=== PATIENT | male | born 1960 | race Caucasian/White ===

== ENCOUNTER 2018-07-30 08:19 | Day surgery (SDC) | payer BC, OTHER ==
[~2018-07-30] VITALS: Ht 190.5 cm; Wt 122.5 kg
[~2018-07-30 08:19] MED LIST: OMEPRAZOLE20 MG PO
--- NOTE | 2018-07-30 11:50 | NUR ---
07/30/18 1150 Elza Clay 1125 PT ARRIVED IN PACU SLEEPY LAYING ON L SIDE. ABD SOFT. 1135 OXYGEN DECREASED TO 2L VIA NC WITH SATS 93%. PT RESTING. NO C/O'S. 1145 OXYGEN REMOVED. SATS 93% ON RA. SITTING UP IN BED SIPPING ON APPLE JUICE.
--- NOTE | 2018-08-14 13:39 | OR ---
[facility] [address], [place] [address] Signed DATE OF OPERATION: 07/30/2018 SURGEON: Estella Michelle MD PREOPERATIVE DIAGNOSES: 1. Gastroesophageal reflux disease. 2. Hiatal hernia (38-42 cm). 3. Personal history of gastritis. 4. Personal history of distal esophagitis. 5. He has a father with a history of colon cancer in his 60s. POSTOPERATIVE DIAGNOSES: 1. Moderate sized hiatal hernia (40-45 cm). 2. 4 mm polyps at 32 cm, 10 cm, and 6 cm. PROCEDURES PERFORMED: 1. Esophagogastroduodenoscopy without biopsy. 2. Colonoscopy with hot biopsies. ESTIMATED BLOOD LOSS: None. INDICATIONS: Elvis is a 57-year-old gentleman who had come to us in 2013 for upper and lower endoscopy. We know his father developed colon cancer in the 60s. In addition, Elvis was having trouble with acid reflux. He told me without his Prilosec he is quite miserable. In fact, he went out and bought a bed inclined, so he can sleep at night since I have seen him last. We measured his hiatal hernia back then from 38 to 42 cm. He also had some very mild gastritis and distal esophagitis at that time. He said this has become quite an issue for him and is miserable. He was thinking about having surgery to repair that hiatal hernia. In the office, I gave him pamphlets on upper and lower endoscopy and we reviewed that together. He understands the nature of the 2 tests along with the risks including, but not limited to gas bloating, crampy abdominal pain, bleeding, perforation, requiring surgery, and missed diagnosis. He also understands the need for IV conscious sedation. He had expressed understanding and wished to proceed. PROCEDURE NOTE: Elvis was taken into our endoscopy suite and placed in the supine semi-recumbent position. He was given a total of 9 mg of Versed and 200 mcg of fentanyl to cover both the upper and lower endoscopies. A bite block was utilized for the case. The adult Electronically Signed By: ESTELLA MICHELLE MD 07/31/18 0948 PATIENT NAME: ELVIS HAYES OPERATIVE REPORT DATE OF : 64 REPORT #: [id number] PHYSICIAN: ESTELLA MICHELLE MD PCP: PATTIE MCGARRY REPORT IS CONFIDENTIAL AND NOT TO BE RELEASED WITHOUT AUTHORIZATION [facility] [address] [place], [place] [address] Signed gastroscope was introduced and advanced under direct visualization of camera out into the duodenum itself. The duodenum and pyloric channel were fine, and his entire stomach was unremarkable. We did not repeat biopsies nor the CLOtest on this occasion since we just did that a few years ago. Upon retroflexion of scope, we could once again easily see his moderate-sized hiatal hernia. We withdrew the scope up through the area of the GE junction, which was compliant without stricture. No ulcerations. No Lucy-Rodriguez tears. We measured the hiatal hernia on this occasion from about 40 cm back to 45 cm from inserted from 45 cm back to 40 cm. He has very minimal disruption to the Z-line. There was no Sorenson's mucosa. There was no distal esophagitis on this occasion. His middle and upper esophagus were fine. After this, the gas was suctioned out and the gastroscope removed. Elvis tolerated his upper endoscopy quite well. Elvis was rotated into the left lateral decubitus position. He was maintained on IV sedation with Versed and fentanyl. A digital rectal exam was performed and he is getting some induration to the prostate given his age. The adult colonoscope was introduced and advanced all around into the cecum under direct visualization of camera without difficulty. His prep was good. The scope was slowly withdrawn. We removed the above polyps with the help of hot biopsy forceps. After this, the scope had been retroflexed in the rectum and had this one small polyp above the anal canal, which we removed easily with hot biopsy forceps. After this, the gas was suctioned out and colonoscope removed. Elvis tolerated the procedure quite well. RECOMMENDATIONS: I will see Elvis back in my office in 7 to 14 days to review his results. We will once again look for his barium swallow. We will also review the surgery for him, and his pathology report for his colonic polyps. Estella Michelle MD ALB/MODL /[id number] cc: MD Pattie David PA Electronically Signed By: ESTELLA MICHELLE MD 07/31/18 0948 PATIENT NAME: ELVIS HAYES OPERATIVE REPORT DATE OF : 64 REPORT #: [id number] PHYSICIAN: ESTELLA MICHELLE MD PCP: PATTIE MCGARRY REPORT IS CONFIDENTIAL AND NOT TO BE RELEASED WITHOUT AUTHORIZATION [facility] [address] [place], [place] [address] Signed Copies: ESTELLA MICHELLE MD, KRISTIN H PA ~ Electronically Signed By: ESTELLA MICHELLE MD 07/31/18 0948 PATIENT NAME: ELVIS HAYES OPERATIVE REPORT DATE OF : 64 REPORT #: [id number] PHYSICIAN: ESTELLA MICHELLE MD PCP: PATTIE MCGARRY REPORT IS CONFIDENTIAL AND NOT TO BE RELEASED WITHOUT AUTHORIZATION
== END 2018-07-30 12:20 | disposition home or self-care (01) ==
LOC: OPS 08:19 → DS 08:19 → OPS 09:45 → DS 09:45 → OPS 12:20
PROVIDERS: Colon & Rectal Surgery
PROC: 0DJ08ZZ Inspection of Upper Intestinal Tract, Via Natural or Artificial Opening Endoscopic (ICD-10-PCS; principal; 2018-07-30 09:45)
PROC: 0DBE8ZX Excision of Large Intestine, Via Natural or Artificial Opening Endoscopic, Diagnostic (ICD-10-PCS; 2018-07-30 09:45)
DX: Z12.11 Encounter for screening for malignant neoplasm of colon (principal); K63.5 Polyp of colon; K21.9 Gastro-esophageal reflux disease without esophagitis; K44.9 Diaphragmatic hernia without obstruction or gangrene; E55.9 Vitamin D deficiency, unspecified; Z80.0 Family history of malignant neoplasm of digestive organs; Z98.890 Other specified postprocedural states; Z87.891 Personal history of nicotine dependence; Z88.6 Allergy status to analgesic agent
CPT/HCPCS: 99153; G0500; J2250; J3010; J7120

== ENCOUNTER 2019-07-09 18:32 | Emergency (ER) | payer BC, OTHER ==
[~2019-07-09] VITALS: Ht 190.5 cm; Wt 122.5 kg
--- OUTSIDE RECORDS SUMMARY | ~2019-07-09 | XMS | Encounter Summary ---
Demographics + + + | Address | [address] | | | [place] [address] | + + + | Home Phone | | + + + | Preferred Language | Unknown | + + + | Marital Status | Single | + + + | Taoist Affiliation | Unknown | + + + | Race | Unknown | + + + | Ethnic Group | Unknown | + + + Author + + + | Author | [facility] | | | and [place] | + + + | Organization | [facility] | | | and [place] | + + + | Address | Unknown | + + + | Phone | Unavailable | + + + Care Team Providers + +------+ + | Care Freight Dispatcher Name | Role | Phone | + +------+ + PCP | Unavailable | + +------+ + Encounter Details +--------+ + + + + | Date | Type | Department | Care Team | Description | +--------+ + + + + | 08/08/ | Hospital | [facility] | Corbin Sweet | BENIGN MAX SOFT | | 2004 - | Encounter | [address] | [address] | [address] | | | | [address] | [place] [address] | | | 08/16/ | | [place], [place] | [phone] | | | 2004 | | [address] | | | | | | [phone] | | | +--------+ + + + + Social History + +-------+ +--------+------+ | Tobacco Use | Types | Packs/Day | Years | Date | | | | | Used | | + +-------+ +--------+------+ | Never Assessed | | | | | + +-------+ +--------+------+ + + + | Sex Assigned at | Date Recorded | | | | + + + | Not on file | | + + + + + + + | Job Start Date | Occupation | Industry | + + + + | Not on file | Not on file | Not on file | + + + + + + + + | Travel History | Travel Start | Travel End | + + + + + + | No recent travel history available. 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
--- OUTSIDE RECORDS SUMMARY | ~2019-07-09 | XMS | Clinical Summary ---
Demographics + + + | Address | [address] | | | [place] [address] | + + + | Home Phone | | + + + | Preferred Language | Unknown | + + + | Marital Status | Single | + + + | Sikh Affiliation | Unknown | + + + | Race | Unknown | + + + | Ethnic Group | Unknown | + + + Author + + + | Author | [facility] (Historical as of | | | 03-08-19) | + + + | Organization | [facility] (Historical as of | | | 03-08-19) | + + + | Address | Unknown | + + + | Phone | Unavailable | + + + Care Team Providers + +------+ + | Care Vp Talent Management Name | Role | Phone | + +------+ + | Dr. Ad | PP | Unavailable | + +------+ + Allergies Not on File Current Medications Not on file Active Problems Not on file Social History + +-------+ +--------+------+ | Tobacco [...] on file | | + + + Plan of Treatment Not on file Results Not on filefrom Last 3 Months"
--- OUTSIDE RECORDS SUMMARY | ~2019-07-09 | XMS | Encounter Summary ---
Demographics + + + | Address | [address] | | | [place] [address] | + + + | Home Phone | | + + + | Preferred Language | Unknown | + + + | Marital Status | Single | + + + | Confucianism Affiliation | Unknown | + + + | Race | Unknown | + + + | Ethnic Group | Unknown | + + + Author + + + | Author | [facility] | | | and [place] | + + + | Organization | [facility] | | | and [place] | + + + | Address | Unknown | + + + | Phone | Unavailable | + + + Care Team Providers + +------+ + | Care Audiologist Name | Role | Phone | + +------+ + PCP | Unavailable | + +------+ + Encounter Details +--------+ + + + + | Date | Type | Department | Care Team | Description | +--------+ + + + + | 08/08/ | Hospital | [facility] | Corbin Sweet | BENIGN MAX SOFT | | 2004 - | Encounter | [address] | [address] | [address] | | | | [address] | [place] [address] | | | 08/16/ | | [place], [place] | [phone] | | | 2004 | | [address] | | | | | | [phone] | | | +--------+ + + + [...]
--- OUTSIDE RECORDS SUMMARY | ~2019-07-09 | XMS | Clinical Summary ---
Demographics + + + | Address | [address] | | | [place] [address] | + + + | Home Phone | | + + + | Preferred Language | Unknown | + + + | Marital Status | Single | + + + | Taoist Affiliation | Unknown | + + + | Race | Unknown | + + + | Ethnic Group | Unknown | + + + Author + + + | Author | [facility] | | | and [place] | + + + | Organization | [facility] | | | and [place] | + + + | Address | Unknown | + + + | Phone | Unavailable | + + + Care Team Providers + +------+ + | Care Optometry Doctor Name | Role | Phone | + +------+ + PCP | Unavailable | + +------+ + Allergies Not on File Medications Not on file Active Problems Not [...] recent travel history available. | + + Last Filed Vital Signs Not on file Plan of Treatment + + + + + | Health Maintenance | Due Date | Last Done | Comments | + + + + + | Vaccine: | | | | | Dtap/Tdap/Td (1 - | 2 | | | | Tdap) | | | | + + + + + | Vaccine: Zoster (1 | | | | | of 2) | 3 | | | + + + + + | Vaccine: Influenza | | | | | (#1) | 9 | | | + + + + + Results Not on filefrom Last 3 Months"
--- OUTSIDE RECORDS SUMMARY | ~2019-07-09 | XMS | Clinical Summary ---
Demographics + + + | Address | [address] | | | [place] [address] | + + + | Home Phone | | + + + | Preferred Language | Unknown | + + + | Marital Status | Single | + + + | Hoahaoism Affiliation | Unknown | + + + | Race | Unknown | + + + | Ethnic Group | Unknown | + + + Author + + + | Author | [facility] (Historical as of | | | 03-08-19) | + + + | Organization | [facility] (Historical as of | | | 03-08-19) | + + + | Address | Unknown | + + + | Phone | Unavailable | + + + Care Team Providers + +------+ + | Care Panel Raiser Operator Name | Role | Phone | + [...]
--- OUTSIDE RECORDS SUMMARY | ~2019-07-09 | XMS | Clinical Summary ---
Demographics + + + | Address | [address] | | | [place] [address] | + + + | Home Phone | | + + + | Preferred Language | Unknown | + + + | Marital Status | Single | + + + | Uatsdin Affiliation | Unknown | + + + | Race | Unknown | + + + | Ethnic Group | Unknown | + + + Author + + + | Author | [facility] | | | and [place] | + + + | Organization | [facility] | | | and [place] | + + + | Address | Unknown | + + + | Phone | Unavailable | + + + Care Team Providers + +------+ + | Care Aircraft Steel Fabricator Name | Role | Phone | + [...]
== END 2019-07-09 19:37 | disposition left against medical advice (07) ==
LOC: ED 18:32
DX: Z53.21 Procedure and treatment not carried out due to patient leaving prior to being seen by health care provider (principal)

== ENCOUNTER 2021-08-24 08:21 | Emergency (ER) | payer BC, OTHER ==
[~2021-08-24] VITALS: Ht 190.5 cm; Wt 124.2 kg
--- OUTSIDE RECORDS SUMMARY | 2021-08-24 08:30 | XMS ---
PreManage Notification: NICHO HAYES Security Cloth Washer Events No recent Security Events currently on file CRITERIA MET - Group Notification CARE PROVIDERS There are no care providers on record at this time. Vicente has no Care Guidelines for this patient. Pari VISIT COUNT (12 MO.) 1 TEVIN Mason TOTAL 1 NOTE: Visits indicate total known visits. ED/UCC VISIT TRACKING (12 MO.) 08/24/2021 08:22 TEVIN Hurst [place] TYPE: Emergency COMPLAINT: - FLU SYMPTOMS INPATIENT VISIT TRACKING (12 MO.) No inpatient visits to display in this time frame [email or web address]
[2021-08-24] MEDS ORDERED: PREDNISONE20 MG PO (09:13)
[2021-08-24] MEDS ORDERED: PROVENTIL HFA6.7 GM INH (09:13)
[2021-08-24] MEDS ORDERED: ROBITUSSIN COU237 M2 PO (09:13)
== END 2021-08-24 10:06 | disposition home or self-care (01) ==
LOC: ED 08:21
DX: U07.1 COVID-19 (principal); Z87.891 Personal history of nicotine dependence; Z88.6 Allergy status to analgesic agent; Z79.899 Other long term (current) drug therapy
CPT/HCPCS: 71045; 96372; 99283-25; J1885

== ENCOUNTER 2024-07-04 05:40 | Day surgery (SDC) | payer BC, OTHER ==
[~2024-07-04] VITALS: Ht 190.5 cm; Wt 135.0 kg
[~2024-07-04 05:40] MED LIST changes: +LACTATED RINGER'S 1,000 ML IV SCH; +MULTI VITAMIN1 EACH PO; +PREDNISONE20 MG PO; +PROVENTIL HFA6.7 GM INH; +ROBITUSSIN COU237 M2 PO
[2024-07-04 06:01] VITALS: BP 145/86
[2024-07-04] MEDS ORDERED: KETOROLAC TROMETHAMINE 30 MG/ML VIAL ONE ×2 (06:23→07:19)
[2024-07-04] MEDS ORDERED: LIDOCAINE HCL 1% 5 ML SDV INJ ONE (07:00)
[2024-07-04] MEDS ORDERED: CEFAZOLIN SODIUM 3 GM/30 ML SYR IV SCH (07:00)
[2024-07-04] MEDS ORDERED: TRANEXAMIC ACID 2,000 MG in SODIUM CHLORIDE 0.9% 100 ML IV SCH (07:00)
[2024-07-04] MEDS ORDERED: IBLOOD GLUCOSE TEST STRIP 1 EA TEST VI PRN ×2 (07:00→08:00)
[2024-07-04] MEDS ORDERED: ondansetron HCL 4 MG/2 ML VIAL ONE (07:19)
[2024-07-04] MEDS ORDERED: ACETAMINOPHEN 1,000 MG/100 ML VIAL ONE (07:19)
[2024-07-04] MEDS ORDERED: DEXAMETHASONE SOD PHOS 4 MG/ML VIAL ONE (07:19)
[2024-07-04] MEDS ORDERED: propofoL 200 MG/20 ML VIAL ONE (07:19)
[2024-07-04] MEDS ORDERED: LIDOCAINE HCL 2% 5 ML SDV ONE (07:19)
[2024-07-04] MEDS ORDERED: dexmedeTOMIDine HCl 200 MCG/2 ML VIAL ONE (07:19)
[2024-07-04] MEDS ORDERED: fentaNYL citrate 100 MCG/2 ML VIAL ONE (07:19)
[2024-07-04] MEDS ORDERED: CEFAZOLIN SODIUM 3 GM/30 ML SYR ONE (07:26)
[2024-07-04] MEDS ORDERED: NALOXONE HCL 0.4 MG SYR IV PRN (08:00)
[2024-07-04] MEDS ORDERED: fentaNYL citrate 50 MCG/ML SDV IV PRN (08:00)
[2024-07-04] MEDS ORDERED: HYDROCODONE/ACETA 5/325 TAB PO PRN (08:00)
[2024-07-04] MEDS ORDERED: ondansetron HCL 4 MG/2 ML VIAL IV PRN (08:00)
--- NOTE | 2024-07-04 08:02 | NUR ---
VISITED DURING SPIRITUAL CARE ROUNDS. PT NOT AVAILABLE FOR VISIT; VISITED WITH FAMILY MEMBER IN ROOM. NO IMMEDIATE NEEDS. RN DELIVERY PROVIDED SUPPORTIVE PRESENCE, HOSPITALITY, PRAYER. FAMILY MEMBER EXPRESSED GRATITUDE.
[2024-07-04] MEDS ORDERED: HYDROCODON-ACE1 EA10 PO (08:05)
[2024-07-04] MEDS ORDERED: DICLOFENAC SODI75 MG PO (08:05)
--- NOTE | 2024-07-04 08:30 | NUR ---
07/04/24 0830 Charlene Flanagan 0806-PT ARRIVES TO THE PACU WITH A NATURAL AIRWAY AND BREATHING IS EVEN AND UNLABORED. PT IS DROWSY AND TALKING WITH THIS RN. PT DENIES PAIN AND NAUSEA. MONITORS PUT IN PLACE VSS. SURGICAL SITE OF L KNEE IS ELEVATED AND ICE PACK APPLIED. CMS IS WNL. LR INFUSING IN R WRIST AND PT IS IN SEMI FOWLERS. 0825- PT CONTINUE TO TALK WITH THIS RN. O2 SATS DECREASED TO 89%. PT ENCOURAGED TO COUGH AND DEEP BREATHE. O2 SATS RECOVER TO LOW 90S. WILL CONTINUE TO MONITOR. PT STATES IS IN NO APPARENT DISTRESS, HE ALSO FEELS HIS KNEE IS SORE. 0830- PT CLAIMS 4/10 PAIN WITH HIS KNEE THAT IS TOLERABLE AT THIS TIME. WILL CONTINUE TO MONITOR.
[2024-07-04 08:43] VITALS: BP 111/76
--- NOTE | 2024-07-04 08:46 | NUR ---
LE 0845: PT IS BACK TO DS FROM PACU. HE IS REPORTING TOLERABLE PAIN. HE HAS WATER, COFFE, AND CRACKERS ON BEDSIDE TABLE. IS AT THE BEDSIDE. CALL LIGHT WITHIN REACH. NO ADDITIONAL NEEDS AT THIS TIME. DC CRITERIA REVIEWED WITH PT AND .
[2024-07-04] MEDS ORDERED: DICLOFENAC SOD 75 MG TABEC PO SCH (09:00)
[2024-07-04 09:48] VITALS: BP 109/68
--- NOTE | 2024-07-04 09:56 | NUR ---
PT UP TO BR, SBA. VOIDED 220 ML OF DARK YELLOW URINE. PT BACK TO BED. INSTRUCTION PROVIDED ON SAFETY WHILE DRESSING. IN ROOM TO ASSIST. CALL LIGHT IN REACH
--- NOTE | 2024-07-04 09:58 | NUR ---
JACY 0949: PT IS TOLERATING COFFEE, WATER, AND CRACKERS. HE WOULD LIKE TO GET UP TO USE THE BATHROOM. HE IS REPORTING NO PAIN AT THIS TIME.
--- NOTE | 2024-07-04 10:11 | NUR ---
LE 1005: PT AND ARE GIVEN VERBAL AND WRITTEN DC INSTRUCTIONS. THEY BOTH VERBALIZE UNDERSTANDING. NO QUESTIONS ARE ASKED AT THIS TIME. PT IS DC'D HOME VIA WC, HE IS TAKEN TO PERSONAL VEHICLE.
[2024-07-04] MEDS ORDERED: SEVOFLURANE 250 ML BTL INH ONE (12:30)
--- NOTE | 2024-07-07 07:00 | OR ---
[facility] [address] [place], [place] [address] Signed DATE OF OPERATION: 07/04/2024 SURGEON: Dipak Taylor MD PREOPERATIVE DIAGNOSIS: Medial meniscus tear, left knee. POSTOPERATIVE DIAGNOSIS: Medial meniscus tear, left knee. PROCEDURE PERFORMED: Left knee arthroscopy with partial meniscectomy. MUSKRAT TRAPPER: DIMITRIS Rust. ANESTHESIA: General. BLOOD LOSS: 50 mL. BRIEF HISTORY: Elvis is a 63-year-old gentleman with pain and instability in his knee. MRI was consistent with posteromedial meniscus tear. Risks, benefits, and alternatives of surgery were discussed with him and he elected to proceed. Once consent was obtained, he was taken to the operating room. After adequate anesthesia, he was placed on the operating room table. The right knee was flexed, abducted and externally rotated on a well-padded leg oviedo. The left was placed in a well-padded leg oviedo with no tourniquet. The leg was then prepped and draped in a standard sterile fashion. The portal sites were injected with 0.25% Marcaine with epinephrine. The standard inferolateral and superolateral portals were made and the scope was introduced into the knee. ARTHROSCOPIC FINDINGS: The knee showed moderate synovitis throughout. The patella was noted to track well. There was minimal grade 1 chondromalacia to the patella and trochlea. The medial and lateral gutters were clear. There was a small plica medially. The lateral compartment was intact. The ACL and PCL were intact. The medial compartment showed diffuse areas of grade 2 chondromalacia to the lateral edge of the medial femoral condyle. There was Electronically Signed By: DIPAK TAYLOR MD 07/07/24 0700 PATIENT NAME: ELVIS HAYES OPERATIVE REPORT DATE OF : 64 REPORT #: [id number] PHYSICIAN: DIPAK TAYLOR MD PCP: JUSTINA AGUILERA MD REPORT IS CONFIDENTIAL AND NOT TO BE RELEASED WITHOUT AUTHORIZATION [facility] [address] [place] [id number] Signed a primarily horizontal tear of the meniscus starting in the midbody and extending back just past the corner. DESCRIPTION OF OPERATION: Standard inferior portal was made after localization using a spinal needle. The straight and curved biters were then used to trim the meniscus tear back to a stable rim and feathered it down anteriorly and posteriorly. This was then smoothed using the shaver and all debris was evacuated. The small chondral flaps on the medial femoral condyle were removed as well. The scope was then withdrawn. Portals were closed with 3-0 nylon and the knee was injected with 60 mg of Toradol. The wounds were dressed with Adaptic, ABD, and Jay wrap. He tolerated the procedure well. All sponge, needle, and instrument counts were correct. Dipak Taylor MD BA/CESAR /[id number] Copies: ~ Electronically Signed By: DIPAK TAYLOR MD 07/07/24 0700 PATIENT NAME: ELVIS HAYES OPERATIVE REPORT DATE OF : 64 REPORT #: [id number] PHYSICIAN: DIPAK TAYLOR MD PCP: JUSTINA AGUILERA MD REPORT IS CONFIDENTIAL AND NOT TO BE RELEASED WITHOUT AUTHORIZATION
== END 2024-07-04 10:05 | disposition home or self-care (01) ==
LOC: DS 05:40
PROVIDERS: ATTEND Specialist
PROC: 0SBD4ZZ Excision of Left Knee Joint, Percutaneous Endoscopic Approach (ICD-10-PCS; principal; 2024-07-04 07:00)
DX: S83.242A Other tear of medial meniscus, current injury, left knee, initial encounter (principal); M22.42 Chondromalacia patellae, left knee; Z87.891 Personal history of nicotine dependence; X58.XXXA Exposure to other specified factors, initial encounter
CPT/HCPCS: 01400; J0131; J0690; J1100; J1885; J2003; J2405; J2704; J3010; J7121